=== PATIENT | female | born 1940 | race Caucasian/White ===

== ENCOUNTER 2021-10-05 21:22 | Inpatient (IN) ==
[2021-10-05] MEDS ORDERED: Morphine Sulfate 2 MG/ML SYRINGE IVP PRN (21:39)
[2021-10-05] MEDS ORDERED: Ondansetron 4 MG/2 ML VIAL IVP ONE (21:39)
[2021-10-05 22:42] LABS: Basophils % 0.3 %; Eosinophils # 0.1 K/mcL (0.0-0.6); Eosinophils % 0.7 %; Hematocrit 42.2 % (35.3-44.9); Hemoglobin 13.8 g/dL (11.5-15.4); Immature Granulocytes % 0.6 % (0-4); Lymphocytes # 1.9 K/mcL (0.6-4.6); Lymphocytes % 12.2 %; Mean Corpuscular HGB Conc 32.7 g/dL (31.6-35.5); Mean Corpuscular Hemoglobin 30.6 pg (28.0-33.3); Mean Corpuscular Volume 93.6 fL (83.0-100.0); Mean Platelet Volume 11.2 fL (9.4-12.4); Monocytes # 0.7 K/mcL (0.0-1.3); Monocytes % 4.2 %; Neutrophils # 12.9 K/mcL (1.6-8.9); Platelet Count 237 K/mcL (140-400); Red Blood Count 4.51 M/mcL (3.82-4.97); Red Cell Distribution Width 12.4 % (11.5-14.5); White Blood Count 15.8 K/mcL (4.3-11.1)
[2021-10-05] MEDS ORDERED: Morphine Sulfate 2 MG/ML SYRINGE IVP ONE (22:49)
[2021-10-05 22:51] LABS: Calcium 9.5 mg/dL (8.6-10.3); INR 1.1; Potassium 4.3 mEq/L (3.5-5.1); Prothrombin Time 12.7 Seconds (9.4-12.1)
[2021-10-05] MEDS ORDERED: Ondansetron 4 MG/2 ML VIAL IVP PRN (23:22)
[2021-10-05] MEDS ORDERED: Naloxone 0.4 MG/ML INJ IVP PRN (23:22)
[2021-10-05] MEDS ORDERED: 0.9 % Sodium Chloride 1,000 ML IVC SCH (23:45)
[2021-10-05] MEDS ORDERED: D5% in Water 1,000 ML IVC PRN (23:51)
[2021-10-05] MEDS ORDERED: *HR* Dextrose 50 % in Water (Syg) 50 ML SYRINGE IVP PRN (23:51)
[2021-10-05] MEDS ORDERED: Dextrose Gel 15 GM/37.5 ML TUBE PO PRN ×2 (23:51)
[2021-10-06 00:33] LABS: Influenza A PCR Negative (Negative); Influenza B PCR Negative (Negative); Resp. Syncytial Virus PCR Negative (Negative)
[2021-10-06 00:35] LABS: SARS-CoV-2 by PCR (In House) Negative (Negative)
[2021-10-06] MEDS ORDERED: Saliva Stimulant 44.3ml BOTTLE PO PRN ×2 (01:01→15:30)
[2021-10-06 02:52] LABS: Bilirubin,Urine Negative (Negative); Blood,Urine Negative (Negative); Clarity,Urine Clear (Clear); Color,Urine Colorless (Yellow); Glucose,Urine (UA) Normal (Normal); Ketones,Urine Negative (Negative); Leukocyte Esterase,Urine Negative (Negative); Nitrite,Urine Negative (Negative); PH,Urine 5.5 pH Units (5.0-8.0); Protein,Urine Trace mg/dL (Neg-Trace); Specific Gravity,Urine 1.011 (1.010-1.025); Urobilinogen,Urine Normal (Normal)
[2021-10-06] MEDS ORDERED: Morphine Sulfate 2 MG/ML SYRINGE IVP PRN (03:17)
[2021-10-06 05:07] LABS: Hematocrit 39.8 % (35.3-44.9); Hemoglobin 13.1 g/dL (11.5-15.4); Mean Corpuscular HGB Conc 32.9 g/dL (31.6-35.5); Mean Corpuscular Volume 94.3 fL (83.0-100.0); Mean Platelet Volume 10.9 fL (9.4-12.4); Platelet Count 226 K/mcL (140-400); Red Blood Count 4.22 M/mcL (3.82-4.97); Red Cell Distribution Width 12.4 % (11.5-14.5); White Blood Count 16.5 K/mcL (4.3-11.1)
[2021-10-06 05:17] LABS: INR 1.2; Prothrombin Time 13.2 Seconds (9.4-12.1)
[2021-10-06 05:42] LABS: Calcium 9.1 mg/dL (8.6-10.3); Magnesium 1.5 mg/dL (1.6-2.6); Phosphorous 3.5 mg/dL (2.7-4.5); Potassium 4.7 mEq/L (3.5-5.1)
[2021-10-06] MEDS ORDERED: *HR* OxyCODONE Immed Rel 5 MG TABLET PO PRN (08:00)
[2021-10-06 08:07] LABS: Estimated Average Glucose 108 mg/dl; Hemoglobin A1C 5.4 %
[2021-10-06] MEDS ORDERED: Multivit/Ca/Min/Fe/FA 1 TAB TABLET PO SCH (09:00)
[2021-10-06] MEDS ORDERED: Metoprolol 100 MG TABLET PO SCH ×2 (09:00→21:00)
[2021-10-06] MEDS ORDERED: *HR* FentaNYL (PF) 100 MCG/2 ML VIAL ONE (10:11)
[2021-10-06] MEDS ORDERED: *HR* Propofol 200 MG/20 ML VIAL IVP ONE ×2 (10:11→10:43)
[2021-10-06] MEDS ORDERED: Tranexamic Acid 1,000 MG/10 ML VIAL ONE (10:12)
[2021-10-06] MEDS ORDERED: Lidocaine -MPF 2% 5 ML VIAL ONE (10:13)
[2021-10-06] MEDS ORDERED: Ondansetron 4 MG/2 ML VIAL ONE (10:13)
[2021-10-06] MEDS ORDERED: CeFAZolin Syr 2,000MG/20 ML 2,000 MG/20 ML SYRINGE IVPB ONE (11:06)
[2021-10-06] MEDS ORDERED: Ringers Solution, Lactated 1,000 ML IVC SCH ×3 (11:15→15:30)
[2021-10-06] MEDS ORDERED: Vancomycin 1,000 MG VIAL ONE (11:26)
[2021-10-06] MEDS ORDERED: *HR* Phenylephrine 10 MG/ML VIAL ONE (12:28)
[2021-10-06] MEDS ORDERED: *HR* Labetalol 20 MG/4 ML SYRINGE IVP ONE (14:21)
[2021-10-06] MEDS ORDERED: *HR* Promethazine 25 MG/ML VIAL IM PRN ×2 (14:29→15:30)
[2021-10-06] MEDS ORDERED: Sennosides 8.6 MG TABLET PO PRN ×2 (14:29→15:30)
[2021-10-06] MEDS ORDERED: MOM Conc 10 ML UD.LIQ PO PRN ×2 (14:29→15:30)
[2021-10-06] MEDS ORDERED: Dextrose Gel 15 GM/37.5 ML TUBE PO PRN ×2 (15:30)
[2021-10-06] MEDS ORDERED: Ondansetron 4 MG/2 ML VIAL IVP PRN ×2 (15:30→16:42)
[2021-10-06] MEDS ORDERED: Naloxone 0.4 MG/ML INJ IVP PRN (15:30)
[2021-10-06] MEDS ORDERED: *HR* Dextrose 50 % in Water (Syg) 50 ML SYRINGE IVP PRN (15:30)
[2021-10-06] MEDS ORDERED: D5% in Water 1,000 ML IVC PRN (15:30)
[2021-10-06] MEDS ORDERED: Povidone-Iodine 45 ML, Sodium Chloride IRRigation 1,000 ML IR ONE (16:00)
[2021-10-06] MEDS ORDERED: Ketorolac 30 MG/ML VIAL IVP SCH (16:00)
[2021-10-06] MEDS ORDERED: TOTAL JOINT MIXTURE (100ML) INTRAART ONE (16:00)
[2021-10-06] MEDS ORDERED: Insulin LISPRO 300 UNITS/3 ML VIAL SUBQ SCH (16:30)
[2021-10-06] MEDS: Ketorolac 30 MG/ML VIAL IVP SCH ×2 (16:54→23:52)
[2021-10-06] MEDS: Ascorbic Acid 500 MG TABLET PO SCH (16:56)
[2021-10-06] MEDS ORDERED: Ascorbic Acid 500 MG TABLET PO SCH (17:00)
[2021-10-06] MEDS: Insulin LISPRO 300 UNITS/3 ML VIAL SUBQ SCH (17:48)
[2021-10-06] MEDS ORDERED: CeFAZolin 2 GM/120 ML BAG IVPB SCH (20:00)
[2021-10-06] MEDS: Metoprolol 100 MG TABLET PO SCH (20:05)
[2021-10-06] MEDS: CeFAZolin 2 GM/120 ML BAG IVPB SCH (20:05)
[2021-10-07 00:55] LABS: Basophils % 0.1 %; Hematocrit 31.7 % (35.3-44.9); Immature Granulocytes % 0.4 % (0-4); Lymphocytes # 0.9 K/mcL (0.6-4.6); Mean Corpuscular HGB Conc 31.9 g/dL (31.6-35.5); Mean Corpuscular Hemoglobin 30.4 pg (28.0-33.3); Mean Corpuscular Volume 95.5 fL (83.0-100.0); Mean Platelet Volume 10.9 fL (9.4-12.4); Monocytes # 0.6 K/mcL (0.0-1.3); Monocytes % 4.6 %; Neutrophils # 10.7 K/mcL (1.6-8.9); Platelet Count 167 K/mcL (140-400); Red Blood Count 3.32 M/mcL (3.82-4.97); Red Cell Distribution Width 12.8 % (11.5-14.5); Segmented Neutrophils % 87.9 %; White Blood Count 12.2 K/mcL (4.3-11.1)
[2021-10-07 00:57] LABS: Hemoglobin 10.1 g/dL (11.5-15.4)
[2021-10-07 01:11] LABS: Calcium 8.4 mg/dL (8.6-10.3); Magnesium 1.5 mg/dL (1.6-2.6); Phosphorous 4.2 mg/dL (2.7-4.5); Potassium 4.9 mEq/L (3.5-5.1)
[2021-10-07] MEDS: CeFAZolin 2 GM/120 ML BAG IVPB SCH (04:24)
[2021-10-07] MEDS: Multivit/Ca/Min/Fe/FA 1 TAB TABLET PO SCH (07:52)
[2021-10-07] MEDS: Ascorbic Acid 500 MG TABLET PO SCH ×2 (07:52→17:15)
[2021-10-07] MEDS: Cholecalciferol (D-3) 1,000 UNIT (25MCG) TABLET PO SCH (07:52)
[2021-10-07] MEDS: Metoprolol 100 MG TABLET PO SCH ×2 (07:52→20:32)
[2021-10-07] MEDS: amLODIPine 5 MG TABLET PO SCH (07:52)
[2021-10-07] MEDS: Insulin LISPRO 300 UNITS/3 ML VIAL SUBQ SCH ×3 (07:53→17:06)
[2021-10-07] MEDS ORDERED: VALSARTAN PO SCH (09:00)
[2021-10-07] MEDS ORDERED: amLODIPine 5 MG TABLET PO SCH (09:00)
[2021-10-07] MEDS ORDERED: [UNRECOGNIZED DRUG - OTHER] PO SCH (09:00)
[2021-10-07] MEDS ORDERED: HYDROCHLOROTHIAZIDE PO SCH (09:00)
[2021-10-07] MEDS: *HR* OxyCODONE Immed Rel 5 MG TABLET PO PRN (10:40)
[2021-10-07] MEDS ORDERED: Aspirin Enteric Coated 81 MG Tablet PO SCH (14:32)
[2021-10-07] MEDS: Aspirin Enteric Coated 81 MG Tablet PO SCH ×2 (15:01→20:32)
[2021-10-08] MEDS: *HR* OxyCODONE Immed Rel 5 MG TABLET PO PRN (01:34)
[2021-10-08 08:05] LABS: Basophils % 0.3 %; Eosinophils # 0.1 K/mcL (0.0-0.6); Eosinophils % 0.7 %; Hematocrit 31.1 % (35.3-44.9); Hemoglobin 10.2 g/dL (11.5-15.4); Immature Granulocytes % 0.5 % (0-4); Lymphocytes # 1.9 K/mcL (0.6-4.6); Lymphocytes % 16.6 %; Mean Corpuscular HGB Conc 32.8 g/dL (31.6-35.5); Mean Corpuscular Volume 94.5 fL (83.0-100.0); Mean Platelet Volume 11.2 fL (9.4-12.4); Monocytes # 0.9 K/mcL (0.0-1.3); Monocytes % 7.9 %; Neutrophils # 8.4 K/mcL (1.6-8.9); Platelet Count 161 K/mcL (140-400); Red Blood Count 3.29 M/mcL (3.82-4.97); Red Cell Distribution Width 12.7 % (11.5-14.5); White Blood Count 11.3 K/mcL (4.3-11.1)
[2021-10-08] MEDS: Insulin LISPRO 300 UNITS/3 ML VIAL SUBQ SCH ×3 (08:23→17:14)
[2021-10-08 08:25] LABS: Calcium 8.8 mg/dL (8.6-10.3); Magnesium 1.8 mg/dL (1.6-2.6); Phosphorous 3.4 mg/dL (2.7-4.5); Potassium 4.8 mEq/L (3.5-5.1)
[2021-10-08] MEDS: amLODIPine 5 MG TABLET PO SCH (08:57)
[2021-10-08] MEDS: Multivit/Ca/Min/Fe/FA 1 TAB TABLET PO SCH (08:57)
[2021-10-08] MEDS: Ascorbic Acid 500 MG TABLET PO SCH ×2 (08:57→17:13)
[2021-10-08] MEDS: Cholecalciferol (D-3) 1,000 UNIT (25MCG) TABLET PO SCH (08:57)
[2021-10-08] MEDS: Aspirin Enteric Coated 81 MG Tablet PO SCH ×2 (08:58→20:07)
[2021-10-08] MEDS: Metoprolol 100 MG TABLET PO SCH ×2 (08:58→20:07)
[2021-10-09 05:09] LABS: Basophils % 0.3 %; Eosinophils # 0.1 K/mcL (0.0-0.6); Eosinophils % 0.9 %; Hematocrit 27.9 % (35.3-44.9); Hemoglobin 9.3 g/dL (11.5-15.4); Immature Granulocytes % 0.5 % (0-4); Lymphocytes # 1.8 K/mcL (0.6-4.6); Lymphocytes % 19.2 %; Mean Corpuscular HGB Conc 33.3 g/dL (31.6-35.5); Mean Corpuscular Hemoglobin 31.4 pg (28.0-33.3); Mean Corpuscular Volume 94.3 fL (83.0-100.0); Mean Platelet Volume 11.2 fL (9.4-12.4); Monocytes # 0.8 K/mcL (0.0-1.3); Monocytes % 8.5 %; Neutrophils # 6.8 K/mcL (1.6-8.9); Platelet Count 163 K/mcL (140-400); Red Blood Count 2.96 M/mcL (3.82-4.97); Red Cell Distribution Width 12.7 % (11.5-14.5); Segmented Neutrophils % 70.6 %; White Blood Count 9.6 K/mcL (4.3-11.1)
[2021-10-09 05:36] LABS: Calcium 8.9 mg/dL (8.6-10.3); Phosphorous 3.1 mg/dL (2.7-4.5); Potassium 4.8 mEq/L (3.5-5.1)
[2021-10-09] MEDS: Insulin LISPRO 300 UNITS/3 ML VIAL SUBQ SCH ×3 (07:28→16:50)
[2021-10-09] MEDS: Aspirin Enteric Coated 81 MG Tablet PO SCH ×2 (08:36→20:04)
[2021-10-09] MEDS: Cholecalciferol (D-3) 1,000 UNIT (25MCG) TABLET PO SCH (08:37)
[2021-10-09] MEDS: Ascorbic Acid 500 MG TABLET PO SCH ×2 (08:37→16:57)
[2021-10-09] MEDS: amLODIPine 5 MG TABLET PO SCH (08:37)
[2021-10-09] MEDS: Multivit/Ca/Min/Fe/FA 1 TAB TABLET PO SCH (08:37)
[2021-10-09] MEDS: Metoprolol 100 MG TABLET PO SCH ×2 (08:37→20:04)
[2021-10-10 05:06] LABS: Calcium 8.8 mg/dL (8.6-10.3); Phosphorous 3.2 mg/dL (2.7-4.5); Potassium 4.6 mEq/L (3.5-5.1)
[2021-10-10] MEDS: Insulin LISPRO 300 UNITS/3 ML VIAL SUBQ SCH ×3 (07:59→17:02)
[2021-10-10] MEDS: amLODIPine 5 MG TABLET PO SCH (08:43)
[2021-10-10] MEDS: Metoprolol 100 MG TABLET PO SCH ×2 (08:43→21:03)
[2021-10-10] MEDS: Aspirin Enteric Coated 81 MG Tablet PO SCH ×2 (08:43→21:03)
[2021-10-10] MEDS: Ascorbic Acid 500 MG TABLET PO SCH ×2 (08:43→17:07)
[2021-10-10] MEDS: Cholecalciferol (D-3) 1,000 UNIT (25MCG) TABLET PO SCH (08:43)
[2021-10-10] MEDS: Multivit/Ca/Min/Fe/FA 1 TAB TABLET PO SCH (08:43)
[2021-10-10] MEDS: Valsartan 160 MG TABLET PO SCH (10:21)
[2021-10-10] MEDS: hydroCHLOROthiazide 25 MG TABLET PO SCH (10:22)
[2021-10-11 05:02] LABS: Hematocrit 28.8 % (35.3-44.9); Hemoglobin 9.2 g/dL (11.5-15.4)
[2021-10-11 05:21] LABS: Calcium 8.6 mg/dL (8.6-10.3); Magnesium 1.9 mg/dL (1.6-2.6); Phosphorous 3.4 mg/dL (2.7-4.5); Potassium 4.5 mEq/L (3.5-5.1)
[2021-10-11 06:35] VITALS: O2SAT 95
[2021-10-11] MEDS: Metoprolol 100 MG TABLET PO SCH (08:04)
[2021-10-11] MEDS: Insulin LISPRO 300 UNITS/3 ML VIAL SUBQ SCH (08:05)
[2021-10-11] MEDS: Valsartan 160 MG TABLET PO SCH (08:05)
[2021-10-11] MEDS: amLODIPine 5 MG TABLET PO SCH (08:05)
[2021-10-11] MEDS: hydroCHLOROthiazide 25 MG TABLET PO SCH (08:06)
[2021-10-11] MEDS: Ascorbic Acid 500 MG TABLET PO SCH (08:06)
[2021-10-11] MEDS: Multivit/Ca/Min/Fe/FA 1 TAB TABLET PO SCH (08:06)
[2021-10-11] MEDS: Cholecalciferol (D-3) 1,000 UNIT (25MCG) TABLET PO SCH (08:06)
[2021-10-11 10:48] VITALS: BP 143/83; PULSE 69; TEMP 98
[2021-10-11] MEDS: Aspirin Enteric Coated 81 MG Tablet PO SCH (13:11)
== END 2021-10-11 13:30 | DRG 522 ==
LOC: SUATTDRO → EMEROOARM 21:22 → SUATTDRO 10-06 00:43 → 4WAOSI 10-06 00:43
PROVIDERS: ADMIT Internal Medicine; ATTEND Internal Medicine